=== PATIENT | female | born 1935 | race Two or more races ===

== ENCOUNTER 2022-08-09 09:15 | Day surgery (SDC) | payer OTHER | END 2022-08-09 15:10 | disposition home or self-care (01) | LOC: AMB-ENDOS 09:15 | PROVIDERS: ATTEND Surgery | DX: K57.30 Diverticulosis of large intestine without perforation or abscess without bleeding (principal); R14.0 Abdominal distension (gaseous); R93.5 Abnormal findings on diagnostic imaging of other abdominal regions, including retroperitoneum; D12.0 Benign neoplasm of cecum ==

== ENCOUNTER 2022-09-30 10:15 | Inpatient (IN) | payer OTHER ==
[~2022-09-30] VITALS: Ht 157.5 cm; Wt 68.0 kg
[2022-10-01] MEDS ORDERED: SYNTHROID75 MCG PO (08:05)
[2022-10-01] MEDS ORDERED: HORIZANT300 MG PO (08:05)
[2022-10-01] MEDS ORDERED: MIDODRINE HCL5 MG PO (08:05)
[2022-10-01] MEDS ORDERED: SEVELAMER CARB800 MG PO (08:06)
[2022-10-04] MEDS ORDERED: NEPHRO-VITE TA0.8 MG (14:02)
[2022-10-04] MEDS ORDERED: GABAPENTIN300 M2 (14:02)
[2022-10-08] MEDS ORDERED: TRAM1TAB98 PO (08:24)
[2022-10-08] MEDS ORDERED: PROTONIX40 MG PO (08:24)
[2022-10-08] MEDS ORDERED: DICY20TA PO (08:26)
== END 2022-10-08 12:06 | disposition home or self-care (01) | DRG 329 ==
LOC: SURG 10-04 10:15 → O/R 10-04 12:43 → SURG 10-04 16:12 → EDBD 10-08 12:06
PROVIDERS: ADMIT Surgery; ATTEND Surgery
PROC: 07BB4ZZ Excision of Mesenteric Lymphatic, Percutaneous Endoscopic Approach (ICD-10-PCS; 2022-10-04)
PROC: 3E0F7GC Introduction of Other Therapeutic Substance into Respiratory Tract, Via Natural or Artificial Opening (ICD-10-PCS; 2022-10-04)
PROC: 4A12X4Z Monitoring of Cardiac Electrical Activity, External Approach (ICD-10-PCS; 2022-10-04)
PROC: 0DTF4ZZ Resection of Right Large Intestine, Percutaneous Endoscopic Approach (ICD-10-PCS; principal; 2022-10-04 18:45)
DX: C18.0 Malignant neoplasm of cecum (principal); N18.6 End stage renal disease; I12.0 Hypertensive chronic kidney disease with stage 5 chronic kidney disease or end stage renal disease; E11.22 Type 2 diabetes mellitus with diabetic chronic kidney disease; Z79.4 Long term (current) use of insulin

== ENCOUNTER 2022-10-12 11:29 | Inpatient (IN) | payer OTHER ==
[~2022-10-12] VITALS: Ht 157.5 cm; Wt 68.0 kg
[~2022-10-12 11:29] MED LIST: DICY20TA PO; GABAPENTIN300 M2; HORIZANT300 MG PO; MIDODRINE HCL5 MG PO; NEPHRO-VITE TA0.8 MG; PROTONIX40 MG PO; SEVELAMER CARB800 MG PO; SYNTHROID75 MCG PO; TRAM1TAB98 PO
--- NOTE | 2022-10-12 12:06 | NUR ---
PTE ALERTA,ESTABLE Y ORIENTADA.ESTA REFIERE QUE DESDE EL SABADO COMENZO CON EL SANGRADO RECTAL.PTE DE
--- NOTE | 2022-10-12 15:13 | NUR ---
PACIENTE EVALUADA POR DRA BENITEZ QUIEN ORDENA [place] MEDICO, JASON MCCANN LE ORIENTA A PACIENTE SOBRE EL MISMO Y VERBALIZA ENTENDER. LE COLECTA MUESTRAS DE LABORATORIO BAJO MEDIDAS ASEPTICAS. PENDIENTE ESTUDIO DE CT
--- NOTE | 2022-10-12 15:28 | NUR ---
SE COLCETA MUESTRA DE TYPO Y [place] Y SE ENVIA A LABORATORIO MISCELANEA. SE CANALIZA PACIENTE BAJO MEDIDAS ASEPTICAS, AREA DE VENOPUNCION PATENTE, JAIRO DE EDEMA Y ERITEMA.
--- NOTE | 2022-10-12 17:47 | NUR ---
PACIENTE CON NUEVO TRATAMIENTO MEDICO, SE LE ORIENTA A LA MISMA SOBRE LO ORDENADO POR DRA BENITEZ, MR RADHA PARTITION NOTCHER LE DESTIN TUBOS PILOTOS PARA TRANSFUCION DE EVITA. SE LE DESTIN EL PERMISO DE TRANSFUCION Y SE LE CANALIZA SEGUNDA VEZ EN MANO IZQUIERDA CON ANGIO #20. EL MISMO SE ENCUENTRA PATENTE, JAIRO DE EDEMA ERITEMA. SE ADMINISTRAN MED ORDENADOS POR LASHONDA DE EMERGENCIAS.
[2022-10-14] MEDS ORDERED: FUSION PLUS CA1 EACH PO (13:39)
[2022-10-14] MEDS ORDERED: PROTONIX40 MG PO (13:39)
[2022-10-14] MEDS ORDERED: ABANEU-SL TABL1 EACH SL (13:39)
[2022-10-14] MEDS ORDERED: SYNTHROID75 MCG PO (13:39)
[2022-10-14] MEDS ORDERED: GABAPENTIN300 M2 PO (13:39)
== END 2022-10-15 12:03 | disposition home or self-care (01) | DRG 640 ==
LOC: ER 11:29 → ICU-2 17:10 → ICU 17:10 → SURH 10-13 21:09
PROVIDERS: ADMIT Internal Medicine Geriatric Medicine; ATTEND Internal Medicine Geriatric Medicine
PROC: 3E0F7GC Introduction of Other Therapeutic Substance into Respiratory Tract, Via Natural or Artificial Opening (ICD-10-PCS; principal; 2022-10-12)
DX: E87.5 Hyperkalemia (principal); N18.6 End stage renal disease; K62.5 Hemorrhage of anus and rectum; C18.0 Malignant neoplasm of cecum; I12.0 Hypertensive chronic kidney disease with stage 5 chronic kidney disease or end stage renal disease; E11.22 Type 2 diabetes mellitus with diabetic chronic kidney disease; J44.9 Chronic obstructive pulmonary disease, unspecified; D63.1 Anemia in chronic kidney disease; Z79.4 Long term (current) use of insulin